=== PATIENT | male | born 1945 | race Caucasian/White ===

== ENCOUNTER 2017-06-28 15:33 | Emergency (ER) | payer OTHER, MEDICARE ==
--- NOTE | 2017-06-28 16:00 | PDOC ---
History of Present Illness - General Chief Complaint: Urinary Problem Stated Complaint: UNABLE TO URINATE Time Seen by Provider: 06/28/17 15:53 History Source: Patient, Old Records Exam Limitations: No Limitations Past History - Past Medical History Allergies/Adverse Reactions: Allergies Allergy/AdvReac Type Severity Reaction Status Date / Time No Known Allergies Allergy Verified 06/28/17 15:33 Other medical history: BPH - Psycho/Social/Smoking Cessation Hx Anxiety: No Suicidal Ideation: No Smoking History: Never smoked Substance Use Type: Alcohol Medical Decision Making - Medical Decision Making 06/28/17 15:58 71-year-old male with history of diabetes and hep C presents to the emergency Department with complaints of right lower anterior rib pain status post mechanical fall earlier today. Differential diagnosis includes but is not limited to: Rib contusion, rib fracture, muscular strain/sprain. Plan: 1. Chest x-ray 2. Pain management 3. Observe and reevaluate 4. Chest x-ray is negative will discharge home, follow up with primary care physician and return to the emergency department if symptoms persist, worsen, or new symptoms arise. *DC/Admit/Observation/Transfer Diagnosis at time of Disposition: Contusion of rib on right side - Discharge Dispostion Disposition: HOME Condition at time of disposition: Stable Admit: No - Patient Instructions Additional Instructions: You may take ibuprofen 600-800 mg every 6-8 hours as needed for pain. Please follow-up with your primary care physician and return to the emergency department if your symptoms persist, worsen, or new symptoms arise. - Attestations Physician Attestion: 06/28/17 15:59 I, Dr. Rita Markham, attest that the scribes documentation that appears above has been prepared under my direction and personally reviewed by me in its entirety. I confirmed that the note above accurately reflects all work, treatment, procedures, and medical decision-making performed by me.
[2017-06-28 16:01] VITALS: BP 145/97; PULSE 82; TEMP 98.1; BMI 26.6
[2017-06-28] MEDS ORDERED: MAGNESIUM CITRATE 300 ML BOTTLE PO ONE (16:26)
[2017-06-28 16:29] LABS: URINE APPEARANCE Clear; URINE BILIRUBIN Negative (NEGATIVE); URINE GLUCOSE (UA) Negative (NEGATIVE); URINE KETONE Negative (NEGATIVE); URINE LEUK ESTERASE Negative (NEGATIVE); URINE NITRITE Negative (NEGATIVE); URINE PROTEIN Negative (NEGATIVE); URINE UROBILINOGEN 0.2 (0.2-1.0)
--- NOTE | 2017-06-28 16:34 | PDOC ---
History of Present Illness - General History Source: Patient Exam Limitations: No Limitations - History of Present Illness Initial Comments: 06/28/17 16:29 The patient is a 71M with a PMH of BPH who presents to the ED with complaints of urinary retention. The patient states that he is usually is able to urinate better during the day but that he's had difficulty over the past few days. He said that he was intentionally holding his urine d/t a road trip and now he is unable to urinate. He is supposed to see his urologist tomorrow for an appointment. He is also complaining of 3 days of constipation. LBM recently, passing gas. Soc: does not smoke or use drugs; drinks 1-2 cocktails/night All: NKDA Surg: no surgeries on abdomen <David Ward - Last Filed: 06/28/17 16:53> - General History Source: Patient, Old Records Exam Limitations: No Limitations <Rita Markham - Last Filed: 07/02/17 06:50> - General Chief Complaint: Urinary Problem Stated Complaint: UNABLE TO URINATE Time Seen by Provider: 06/28/17 15:53 Past History - Past Medical History Other medical history: BPH - Psycho/Social/Smoking Cessation Hx Anxiety: No Suicidal Ideation: No Smoking History: Never smoked Hx Alcohol Use: Yes Drug/Substance Use Hx: No Substance Use Type: Alcohol <David Ward - Last Filed: 06/28/17 16:53> <Rita Markham - Last Filed: 07/02/17 06:50> - Past Medical History Allergies/Adverse Reactions: Allergies Allergy/AdvReac Type Severity Reaction Status Date / Time No Known Allergies Allergy Verified 07/01/17 19:02 Review of Systems - Review of Systems Constitutional: No: Chills, Fever Respiratory: No: Shortness of Breath Cardiac (ROS): No: Chest Pain ABD/GI: Yes: Constipated. No: Diarrhea, Nausea, Vomiting : Yes: Other (retention). No: Dysuria, Discharge <David Ward - Last Filed: 06/28/17 16:53> *Physical Exam - Vital Signs Last Vital Signs Temp Pulse Resp BP Pulse Ox 98.1 F 82 16 145/97 98 06/28/17 15:56 06/28/17 15:56 06/28/17 15:56 06/28/17 15:56 06/28/17 15:56 - Physical Exam General Appearance: Yes: Nourished, Appropriately Dressed. No: Apparent Distress HEENT: positive: Normal Voice, Hearing Grossly Normal Respiratory/Chest: positive: Lungs Clear, Normal Breath Sounds. negative: Chest Tender, Respiratory Distress, Accessory Muscle Use Cardiovascular: positive: Regular Rhythm, Regular Rate, S1, S2. negative: Diastolic Murmur, Systolic Murmur Gastrointestinal/Abdominal: positive: Flat, Soft. negative: Tender, Protuberent , Distended, Guarding, Rebound, Tenderness Musculoskeletal: negative: CVA Tenderness (R), CVA Tenderness (L) Extremity: negative: Delayed Capillary Refill, Pedal Edema, Swelling Integumentary: positive: Dry, Warm. negative: Clammy, Swelling Neurologic: positive: Fully Oriented, Alert, Normal Mood/Affect, Motor Strength 5/5 <David Ward - Last Filed: 06/28/17 16:53> - Vital Signs Last Vital Signs Temp Pulse Resp BP Pulse Ox 98.1 F 82 16 145/97 98 06/28/17 15:56 06/28/17 15:56 06/28/17 15:56 06/28/17 15:56 06/28/17 15:56 <Rita Markham - Last Filed: 07/02/17 06:50> Procedures - Additional Procedures Additional Procedures: other (hoskins catheter insertion) <David Ward - Last Filed: 06/28/17 16:53> ED Treatment Course - ADDITIONAL ORDERS Additional order review: 06/28/17 16:07 Urine Culture - Final Urine - Urine - Catheterized NO GROWTH OBTAINED - Medications Given in the ED: ED Medications Discontinued Medications Generic Name Dose Route Start Last Admin Trade Name Freq PRN Reason Stop Dose Admin Magnesium Citrate 300 ml 06/28/17 16:26 06/28/17 17:13 Citroma - PO 06/28/17 16:27 300 ml ONCE ONE Administration <Rita Markham - Last Filed: 07/02/17 06:50> Medical Decision Making - Medical Decision Making 06/28/17 17:00 The patient is a 71M with a PMH of BPH who presents to the ED with urinary retention. He felt much better after having a hoskins inserted. I spoke with his urologist on the phone and he wants the hoskins to stay in. I have also given the patient medication to treat his constipation. Patient understands and is ready for d/c. <David Ward - Last Filed: 06/28/17 16:53> *DC/Admit/Observation/Transfer - Attestations Physician Attestion: 06/28/17 16:51 I, Dr. David Ward, attest that this document has been prepared under my direction and personally reviewed by me in its entirety. I further attest, that it accurately reflects all work, treatment, procedures and medical decision -making performed by me. <David Ward - Last Filed: 06/28/17 16:53> <Rita Markham - Last Filed: 07/02/17 06:50> Diagnosis at time of Disposition: Urinary retention due to benign prostatic hyperplasia Diagnosis at time of Disposition: (Ruled Out): Contusion of rib on right side - Discharge Dispostion Disposition: HOME Condition at time of disposition: Improved - Referrals Referrals: Brendan Mann [Primary Care Provider] - - Patient Instructions Printed Discharge Instructions: DI for Urinary Retention in Men, How to Care for Your Hoskins Catheter -- Male Additional Instructions: Please return to the ER if symptoms persist, worsen, or if new symptoms arise. Please follow up with your urologist tomorrow. Print Language: BENGALI - Post Discharge Activity
[2017-06-28 16:37] LABS: URINE COLOR YELLOW
--- NOTE | 2017-06-28 16:44 | PDOC ---
Attending Attestation - Resident Resident Name: David Ward - ED Attending Attestation I have performed the following: I have examined & evaluated the patient, The case was reviewed & discussed with the resident, I agree w/resident's findings & plan, Exceptions are as noted - HPI HPI: 06/28/17 16:42 Agree with the resident's HPI as documented in the electronic medical record. - Physicial Exam PE: 06/28/17 16:42 Agree with the resident's physical examination as documented in the electronic medical record. - Medical Decision Making 06/28/17 16:42 71-year-old male with history of BPH presents the emergency department with inability to urinate over the past several hours as well as constipation 3 days. The patient was found to be in urinary retention and had a Aguirre catheter placed by the resident which yielded 900 mL of clear urine output. Differential diagnosis includes but is not limited to: Urinary retention, UTI, constipation, BPH. Plan: 1. Urine analysis 2. We will keep the Aguirre catheter in place and discharge home 3. The case has been discussed with the patient's private urologist who is aware of the plan and will see him in the morning at 9 AM 4. Observe and reevaluate
[2017-06-28 16:45] LABS: URINE BLOOD 2+ (NEGATIVE)
[2017-06-28] MEDS ORDERED: MAGNESIUM CITRATE 300 ML BOTTLE ONE (16:49)
== END 2017-06-28 17:14 | disposition home or self-care (01) ==
LOC: FER 15:33
PROC: 0T9B70Z Drainage of Bladder with Drainage Device, Via Natural or Artificial Opening (ICD-10-PCS; principal; 2017-06-28)
DX: N40.1 Benign prostatic hyperplasia with lower urinary tract symptoms (principal)
CPT/HCPCS: 51702; 81003; 87086; 99282-25

== ENCOUNTER 2017-06-29 22:16 | Emergency (ER) | payer OTHER, MEDICARE ==
--- NOTE | 2017-06-29 22:22 | PDOC ---
History of Present Illness - General Chief Complaint: Urinary Problem Stated Complaint: REFERRED TO ER FOR CATHETER Time Seen by Provider: 06/29/17 22:21 History Source: Patient Exam Limitations: No Limitations - History of Present Illness Initial Comments: 06/29/17 23:07 This is a 71-year-old male who comes in complaining of acute urinary retention. Patient has a history of enlarged prostate and was here yesterday for acute urinary retention. Patient saw his urologist this morning and had the catheter removed. Patient now is in again in acute urinary retention. Patient called his urologist and was told to come back to the ER and have the catheter reinserted. Patient denies any fever, chills, back pain or any other complaints. PAST MEDICAL HISTORY: no significant history PAST SURGICAL HISTORY: no significant history FAMILY HISTORY: no pertinant history SOCIAL HISTORY: Pt lives with family and is employed. MEDICATIONS: reviewed ALLERGIES: As per nursing notes Review of Systems General: No fevers or chills, no weakness, no weight loss HEENT: No change in vision. No sore throat,. No ear pain CardioVascular: No chest pain or shortness of breath Respiratory:No cough, or wheezing. Gastrointestinal: no nausea, vomitting, diarrhea or constipation, No rectal bleeding Genitourinary: No dysuria, hematuria, or frequency Musculoskeletal: No joint or muscle pain or swelling Neurologic: No headache, vertigo, dizziness or loss of consciousness Psychiatric: nor depression Skin: No rashes or easy bruising Endocrine: no increased thirst or abnormal weight change Allergic: no skin or latex allergy All other systems reviewed and normal GENERAL: The patient is awake, alert, and fully oriented, in no acute distress. HEAD: Normal with no signs of trauma. EYES: Pupils equal, round and reactive to light, extraocular movements intact, sclera anicteric, conjunctiva clear. EXTREMITIES: Normal range of motion, no edema. BACK/FLANK: There is no CVA, back or flank tenderness on palpation. NEUROLOGICAL: Normal speech, normal gait. PSYCH: Normal mood, normal affect. SKIN: Warm, Dry, normal turgor, no rashes or lesions noted. Assessment and plan: This is a 71-year-old male in acute urinary retention. A Aguirre was placed with approximately 600 mL of urine drained from the bladder. Patient sent home with leg bag and will follow-up with his urologist. Past History - Past Medical History Allergies/Adverse Reactions: Allergies Allergy/AdvReac Type Severity Reaction Status Date / Time No Known Allergies Allergy Verified 06/29/17 22:30 - Psycho/Social/Smoking Cessation Hx Anxiety: No Suicidal Ideation: No Smoking History: Never smoked Hx Alcohol Use: Yes Drug/Substance Use Hx: No Substance Use Type: Alcohol *DC/Admit/Observation/Transfer Diagnosis at time of Disposition: Acute urinary retention - Discharge Dispostion Disposition: HOME Condition at time of disposition: Stable Admit: No - Patient Instructions Additional Instructions: Wear the leg bag until you see the urologist next Wednesday. Return to the emergency department immediately with ANY new, persistent or worsening symptoms. Continue any medications as previously prescribed by your physician. You should follow up with your primary doctor as soon as possible regarding today's emergency department visit. . Please make sure your doctor reviews the results of your emergency evaluation. Thank you for coming to the Emergency Department today for your care. It was a pleasure to see you today. Please note that your evaluation is INCOMPLETE until you follow-up with your doctor.
[2017-06-29 22:38] VITALS: BP 129/85; PULSE 86; TEMP 97.8; BMI 27.4
== END 2017-06-29 22:54 | disposition home or self-care (01) ==
LOC: FER 22:16
PROC: 0T9B70Z Drainage of Bladder with Drainage Device, Via Natural or Artificial Opening (ICD-10-PCS; principal; 2017-06-29)
DX: R33.9 Retention of urine, unspecified (principal); N40.0 Benign prostatic hyperplasia without lower urinary tract symptoms
CPT/HCPCS: 99282-25

== ENCOUNTER 2017-07-01 18:59 | Emergency (ER) | payer OTHER, MEDICARE ==
[2017-07-01 19:18] VITALS: PULSE 85; TEMP 97.7; BMI 26.9
[2017-07-01] MEDS ORDERED: LIDOCAINE HCL 2% JELLY (5 ML/TUBE) ONE (19:19)
--- NOTE | 2017-07-01 19:30 | PDOC ---
History of Present Illness - General History Source: Patient Exam Limitations: No Limitations - History of Present Illness Initial Comments: The patient is a 71 yo M with a PMHx of enlarged prostate presents with urinary tract pain and urgency s/p saunders catheter placement. The patient was seen here on Wednesday for difficulty urinating and had a saunders catheter placed. The patient states he saw his parent educator on Wednesday who removed catheter and placed another. The patient states he began experiencing discomfort with the catheter placed because he began experiencing pressure that felt like he had to pee. He also notes he was was having exert pressure for urine to flow. The patient states he feels like he has to pee. The patient denies nausea, vomiting, diarrhea, fevers and chills. The patient states he wants to change his pharmacy to [email or web address] in [place]. <Acacia Jack - Last Filed: 07/01/17 19:54> - General History Source: Patient, Old Records Exam Limitations: No Limitations <Rita Markham - Last Filed: 07/01/17 19:59> - General Chief Complaint: Urinary Catheter Problem Stated Complaint: URINARY TRACT PAIN PT HAS AN INDWELLING SAUNDERS Time Seen by Provider: 07/01/17 19:18 Past History <Acacia Jack - Last Filed: 07/01/17 19:54> - Past Medical History Disorders: Yes (URINARY RETENSION) Other medical history: PROSTATE PROBLEM - Psycho/Social/Smoking Cessation Hx Anxiety: No Suicidal Ideation: No Smoking History: Never smoked Have you smoked in the past 12 months: No Information on smoking cessation initiated: No Hx Alcohol Use: Yes Drug/Substance Use Hx: No Substance Use Type: Alcohol <Rita Markham - Last Filed: 07/01/17 19:59> - Past Medical History Allergies/Adverse Reactions: Allergies Allergy/AdvReac Type Severity Reaction Status Date / Time No Known Allergies Allergy Verified 07/01/17 19:02 Home Medications: Ambulatory Orders Alfuzosin HCl [Alfuzosin HCl ER] 10 mg PO HS 07/01/17 Levofloxacin [Levaquin -] 500 mg PO DAILY #7 tablet 07/01/17 Magnesium Citrate [Citroma -] 300 ml PO ONCE #1 bottle 07/01/17 Saw/Vit E/Sod Reshma/Lyc/Beta/Pyg [Prostate Health Caplet] 1 each PO HS 07/01/17 Review of Systems - Review of Systems Able to Perform ROS?: Yes Comments:: CONSTITUTIONAL: Absent: fever, chills, diaphoresis, generalized weakness, malaise, loss of appetite HEENT: Absent: rhinorrhea, nasal congestion, throat pain, throat swelling, difficulty swallowing, mouth swelling, ear pain, eye pain, visual Changes CARDIOVASCULAR: Absent: chest pain, syncope, palpitations, irregular heart rate, lightheadedness , peripheral edema RESPIRATORY: Absent: cough, shortness of breath, dyspnea with exertion, orthopnea, wheezing, stridor, hemoptysis GASTROINTESTINAL: Absent: abdominal pain, abdominal distension, nausea, vomiting, diarrhea, constipation, melena, hematochezia GENITOURINARY: +urgency, urinary tract pain Absent: dysuria, frequency, hesitancy, hematuria, flank pain, genital pain MUSCULOSKELETAL: Absent: myalgia, arthralgia, joint swelling SKIN: Absent: rash, itching, pallor NEUROLOGIC: Absent: headache, focal weakness or paresthesias, dizziness, unsteady gait, seizure, mental status changes, bladder or bowel incontinence PSYCHIATRIC: Absent: anxiety, depression, suicidal or homicidal ideation, hallucinations. <Acacia Jack - Last Filed: 07/01/17 19:54> *Physical Exam - Vital Signs Last Vital Signs Temp Pulse Resp BP Pulse Ox 97.7 F 85 20 153/104 96 07/01/17 19:01 07/01/17 19:01 07/01/17 19:01 07/01/17 19:01 07/01/17 19:01 - Physical Exam Comments: GENERAL: Well developed, well nourished. Awake and alert. No acute distress. HEENT: Normocephalic, atraumatic. PERRLA, EOMI. No conjunctival pallor. Sclera are non- icteric. Moist mucous membranes. Oropharynx is clear. NECK: Supple. Full ROM. No JVD. Carotid pulses 2+ and symmetric, without bruits. No thyromegaly. No lymphadenopathy. CARDIOVASCULAR: Regular rate and rhythm. No murmurs, rubs, or gallops. Distal pulses are 2+ and symmetric. PULMONARY: No evidence of respiratory distress. Lungs clear to auscultation bilaterally. No wheezing, rales or rhonchi. ABDOMINAL: Soft. mild suprapubic tenderness to palpation. Saunders was intact. Non-distended. No rebound or guarding. No organomegaly. Normoactive bowel sounds. MUSCULOSKELETAL Normal range of motion at all joints. No bony deformities or tenderness. No CVA tenderness. EXTREMITIES: No cyanosis. No clubbing. No edema. No calf tenderness. SKIN: Warm and dry. Normal capillary refill. No rashes. No jaundice. NEUROLOGICAL: Alert, awake, appropriate. Cranial nerves 2-12 intact. No deficits to light touch and temperature in face, upper extremities and lower extremities. No motor deficits in the in face, upper extremities and lower extremities. Normoreflexic in the upper and lower extremities. Normal speech. Toes are down-going bilaterally. Gait is normal without ataxia. PSYCHIATRIC: Cooperative. Good eye contact. Appropriate mood and affect. <Acacia Jack - Last Filed: 07/01/17 19:54> - Vital Signs Last Vital Signs Temp Pulse Resp BP Pulse Ox 97.7 F 85 20 153/104 96 07/01/17 19:01 07/01/17 19:01 07/01/17 19:01 07/01/17 19:01 07/01/17 19:01 <Rita Markham - Last Filed: 07/01/17 19:59> Medical Decision Making - Medical Decision Making 07/01/17 19:29 71-year-old male with history of prostate enlargement seen on Wednesday and again Wednesday in the emergency department for urinary retention discharged with a Saunders catheter and a leg bag presents to the emergency Department with complaints of lower abdominal pressure. Differential diagnosis includes but is not limited to: UTI, catheter obstruction, catheter malfunction, blood clot. Plan: 1. Change Saunders catheter 2. Irrigate bladder 3. Urine analysis 4. Observe and reevaluate 07/01/17 19:56 Urine analysis has been noted for a positive blood and +1 leukoesterase. The patient is feeling improved. The plan is to start the patient on antibiotics for presumed urinary tract infection. Levaquin 500 mg times one dose is given in the emergency department and a prescription for Levaquin 500 1 tablet daily for the next 6 days was sent to his pharmacy. The patient has an appointment with his urologist on Wednesday. I have encouraged the patient to keep his appointment with that physician and return to the emergency department if his symptoms persist, worsen, or new symptoms arise. <Rita Markham - Last Filed: 07/01/17 19:59> *DC/Admit/Observation/Transfer - Attestations Scribe Attestion: Documentation prepared by Acacia Jack, acting as medical secretary receptionist for Rita Markham MD, /DO. <Acacia Jack - Last Filed: 07/01/17 19:54> - Discharge Dispostion Admit: No - Attestations Physician Attestion: 07/01/17 19:30 I, Dr. Rita Markham, attest that the scribes documentation that appears above has been prepared under my direction and personally reviewed by me in its entirety. I confirmed that the note above accurately reflects all work, treatment, procedures, and medical decision-making performed by me. <Rita Markham - Last Filed: 07/01/17 19:59> Diagnosis at time of Disposition: Acute urinary retention, Urinary tract infection - Discharge Dispostion Disposition: HOME Condition at time of disposition: Stable - Prescriptions Prescriptions: Levofloxacin [Levaquin -] 500 mg PO DAILY #7 tablet - Patient Instructions Printed Discharge Instructions: DI for Urinary Tract Infection (UTI) Additional Instructions: You are being treated for a urinary tract infection with Levaquin 500 mgtake 1 tablet daily for the next 6 days. You have been given your first dose in the emergency department today. Please keep your appointment with your urologist on Wednesday and return to the emergency department if your symptoms persist, worsen, or new symptoms arise.
[2017-07-01 19:46] LABS: URINE BILIRUBIN Negative (NEGATIVE); URINE BLOOD 3+ (NEGATIVE); URINE GLUCOSE (UA) Negative (NEGATIVE); URINE KETONE Negative (NEGATIVE); URINE LEUK ESTERASE 1+ (NEGATIVE); URINE NITRITE Negative (NEGATIVE); URINE PROTEIN 1+ (NEGATIVE); URINE UROBILINOGEN 0.2 (0.2-1.0)
[2017-07-01 19:47] LABS: URINE APPEARANCE PINKISH; URINE COLOR YELLOW
[2017-07-01 19:52] LABS: URINE BACTERIA FEW /hpf (NEGATIVE); URINE RBC 30-40 /hpf (0-3); URINE WBC 0-2 (3-5)
[2017-07-01] MEDS ORDERED: LEVOFLOXACIN 500 MG TABLET (FP) PO ONE (19:55)
[2017-07-01] MEDS ORDERED: LEVOFLOXACIN 500 MG TABLET (FP) ONE (20:11)
[2017-07-01 20:16] VITALS: BP 133/87
== END 2017-07-01 20:25 | disposition home or self-care (01) ==
LOC: FER 18:59
DX: N39.0 Urinary tract infection, site not specified (principal); R33.8 Other retention of urine
CPT/HCPCS: 81003; 81015; 87086; 99283-25

== ENCOUNTER 2019-11-05 13:36 | Emergency (ER) | payer OTHER, MEDICARE ==
[2019-11-05 13:48] VITALS: BP 134/83; PULSE 77; TEMP 98.3; BMI 27.3
--- NOTE | 2019-11-05 13:52 | PDOC ---
History of Present Illness - General Chief Complaint: Injury Stated Complaint: LEFT UPPER ARM PAIN Time Seen by Provider: 11/05/19 13:42 History Source: Patient Exam Limitations: No Limitations - History of Present Illness Initial Comments: 11/05/19 13:49 74 y/o male with left arm pain after falling on aqueduct about 1 hr ago. having trouble lifting arm. Has not taken anything for the pain. Denies LOC, chest pain fever or chills. Is this a multiple visit Asthma Patient?: No Timing/Duration: 1 hour Past History - Past Medical History Allergies/Adverse Reactions: Allergies Allergy/AdvReac Type Severity Reaction Status Date / Time No Known Allergies Allergy Verified 11/05/19 13:37 Home Medications: Ambulatory Orders Alfuzosin HCl [Alfuzosin HCl ER] 10 mg PO HS 07/01/17 Saw/Vit E/Sod Reshma/Lyc/Beta/Pyg [Prostate Health Caplet] 1 each PO HS 07/01/17 Finasteride [Proscar -] 5 mg PO ASDIR 11/05/19 COPD: No Disorders: Yes (URINARY RETENSION) - Psycho Social/Smoking Cessation Hx Smoking History: Never smoked Have you smoked in the past 12 months: No Information on smoking cessation initiated: No Hx Alcohol Use: Yes Drug/Substance Use Hx: No Substance Use Type: Alcohol Review of Systems - Review of Systems Able to Perform ROS?: Yes Is the patient limited Sami proficient: No Constitutional: No: Chills, Fever Respiratory: No: Cough, Shortness of Breath Musculoskeletal: Yes: Joint Swelling, Muscle Pain. No: Back Pain Integumentary: No: Bruising, Rash All Other Systems: Reviewed and Negative *Physical Exam - Vital Signs Last Vital Signs Temp Pulse Resp BP Pulse Ox 98.3 F 77 20 134/83 100 11/05/19 13:36 11/05/19 13:36 11/05/19 13:36 11/05/19 13:36 11/05/19 13:36 - Physical Exam General Appearance: Yes: Nourished, Appropriately Dressed. No: Apparent Distress HEENT: positive: EOMI, ABDIAZIZ, Normal ENT Inspection, Normal Voice Neck: positive: Trachea midline, Normal Thyroid, Supple. negative: Tender, Rigid Respiratory/Chest: positive: Lungs Clear, Normal Breath Sounds. negative: Chest Tender, Respiratory Distress Cardiovascular: positive: Regular Rhythm, Regular Rate, S1, S2. negative: Edema , JVD, Murmur Vascular Pulses: Femoral (R): 4+, Femoral (L): 4+, Carotid (R): 4+, Carotid (L) : 4+, Dorsalis-Pedis (R): 4+, Doralis-Pedis (L): 4+ Gastrointestinal/Abdominal: positive: Normal Bowel Sounds, Flat, Soft. negative : Tender, Organomegaly Lymphatic: negative: Adenopathy, Tenderness, Other Musculoskeletal: positive: Normal Inspection. negative: CVA Tenderness Extremity: positive: Normal Capillary Refill, Normal Inspection, Tender (tender to left humerus mid shaft, no deformity noted). 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 NML intact, Fully Oriented, Alert, Normal Mood/ Affect, Normal Response, Motor Strength 5/ ED Treatment Course - ADDITIONAL ORDERS Additional order review: 11/05/19 13:52 Left arm pain after fall, will obtain x-ray 11/05/19 14:39 X-ray humerus : negative x-ray shoulder : negative Ice, Motrin, rest If worsen return to ER - RADIOLOGY Radiology Studies Ordered: Category Date Time Status HUMERUS-LEFT [RAD] Stat Radiology 11/05/19 13:47 Ordered SHOULDER-LEFT [RAD] Stat Radiology 11/05/19 13:47 Ordered Discharge - Discharge Information Problems reviewed: Yes Clinical Impression/Diagnosis: Contusion, arm, upper Qualifiers: Encounter type: initial encounter Laterality: left Qualified Code(s): S40.022A - Contusion of left upper arm, initial encounter Condition: Good Disposition: HOME - Admission No - Follow up/Referral - Patient Discharge Instructions Patient Printed Discharge Instructions: DI for Arm Pain Additional Instructions: Ice, Motrin, rest If pain persists may need MRI - Post Discharge Activity
== END 2019-11-05 14:47 | disposition home or self-care (01) ==
LOC: FER 13:36
DX: S40.022A Contusion of left upper arm, initial encounter (principal); W01.0XXA Fall on same level from slipping, tripping and stumbling without subsequent striking against object, initial encounter; Y93.01 Activity, walking, marching and hiking; Y92.89 Other specified places as the place of occurrence of the external cause
CPT/HCPCS: 73030-TC-LT-FY; 73060-TC-LT-FY; 99281-25